=== PATIENT | female | born 1945 | race Caucasian/White ===

== ENCOUNTER 2022-04-01 12:24 | Inpatient (IN) | payer OTHER ==
[2022-04-01] MEDS ORDERED: DEXAMETHASONE SOD PHOSPHATE 10 MG/1 ML VIAL IVPUSH ONE (13:50)
[2022-04-01] MEDS ORDERED: GABAPENTIN 100 MG CAPSULE PO ONE (13:51)
[2022-04-01] MEDS ORDERED: HYDROmorphone HCL CARPU-JECT 2 MG/1 ML DISP.SYRIN IVPUSH ONE (13:51)
[2022-04-01] MEDS ORDERED: DEXAMETHASONE SOD PHOSPHATE 10 MG/1 ML VIAL ONE (14:46)
[2022-04-01] MEDS ORDERED: HYDROmorphone HCl 2 MG/ML VIAL ONE (14:47)
[2022-04-01] MEDS ORDERED: GABAPENTIN 100 MG CAPSULE ONE (14:47)
[2022-04-01] MEDS ORDERED: SODIUM CHLORIDE 1,000 ML IV SCH (15:15)
[2022-04-01 15:37] LABS: BASO % 0.4 % (0-2.0); EOS % 1.9 % (0-4.5); HEMATOCRIT 39.4 % (32.4-45.2); HEMOGLOBIN 13.1 GM/dL (10.7-15.3); LYMPH % 27.9 % (8-40); MCH 26.5 pg (25.7-33.7); MCHC 33.3 g/dl (32.0-36.0); MEAN CELL VOLUME 79.7 fl (80-96); MEAN PLT VOLUME 9.3 fl (7.5-11.1); MONO % 8.6 % (3.8-10.2); NEUT % 61.2 % (42.8-82.8); PLATELET COUNT 197 10^3/uL (134-434); RBC 4.94 M/mm3 (3.60-5.2); RDW 15.1 % (11.6-15.6); WHITE BLOOD COUNT 4.5 K/mm3 (4.0-10.0)
[2022-04-01 15:44] LABS: INR 1.03 (0.83-1.09); PROTHROMBIN TIME (PATIENT) 11.8 SEC (9.7-13.0)
[2022-04-01 16:10] LABS: CHLORIDE 101 mmol/L (98-107); SODIUM 139 mmol/L (136-145)
[2022-04-01 16:12] LABS: ANION GAP 6 MMOL/L (8-16); CALCIUM 10.1 mg/dL (8.5-10.1); CO2 32 mmol/L (21-32); GLUCOSE,RANDOM 112 mg/dL (74-106)
[2022-04-01 16:16] LABS: CREATININE 0.6 mg/dL (0.55-1.3)
[2022-04-01] MEDS: DEXTROSE 5%-0.45% SALINE 1,000 ML IV SCH ×2 (17:25→21:30)
[2022-04-01] MEDS: LIDOCAINE 5% TOPICAL PATCH TP SCH (18:18)
[2022-04-01] MEDS ORDERED: CYCLOBENZAPRINE HCL 5 MG TABLET ONE (19:33)
[2022-04-01] MEDS ORDERED: CYCLOBENZAPRINE HCL 5 MG TABLET PO ONE (20:00)
[2022-04-01] MEDS: HYDROmorphone HCl 2 MG/ML VIAL IVPUSH PRN (21:45)
[2022-04-01] MEDS: DEXAMETHASONE SOD PHOSPHATE 4 MG/1 ML VIAL IVPUSH SCH (21:47)
[2022-04-01] MEDS: LIDOCAINE PATCH REMOVAL MC SCH (21:47)
[2022-04-01] MEDS: HEPARIN NA (PORCINE) 5,000 UNITS/ML 1ML VIAL SQ SCH (21:56)
[2022-04-01] MEDS: INSULIN SLIDING SCALE (NOVOLOG) 1 VIAL SQ SCH (21:57)
[2022-04-02 01:46] VITALS: BMI 28.4
[2022-04-02] MEDS: DEXAMETHASONE SOD PHOSPHATE 4 MG/1 ML VIAL IVPUSH SCH ×4 (03:47→21:45)
[2022-04-02] MEDS: HYDROmorphone HCl 2 MG/ML VIAL IVPUSH PRN ×2 (06:10→09:52)
[2022-04-02] MEDS: INSULIN SLIDING SCALE (NOVOLOG) 1 VIAL SQ SCH ×4 (06:18→21:53)
[2022-04-02] MEDS: LIDOCAINE 5% TOPICAL PATCH TP SCH (09:30)
[2022-04-02] MEDS: PANTOPRAZOLE 20 MG TABLET PO SCH (09:30)
[2022-04-02] MEDS: LOSARTAN POTASSIUM 50 MG TABLET PO SCH (09:30)
[2022-04-02] MEDS: amLODIPine BESYLATE 5 MG TABLET (FP) PO SCH (09:30)
[2022-04-02] MEDS: HEPARIN NA (PORCINE) 5,000 UNITS/ML 1ML VIAL SQ SCH (09:31)
[2022-04-02 09:53] LABS: HEMATOCRIT 39.7 % (32.4-45.2); HEMOGLOBIN 13.2 GM/dL (10.7-15.3); MCH 26.3 pg (25.7-33.7); MCHC 33.3 g/dl (32.0-36.0); MEAN PLT VOLUME 9.4 fl (7.5-11.1); PLATELET COUNT 219 10^3/uL (134-434); RBC 5.02 M/mm3 (3.60-5.2); RDW 14.9 % (11.6-15.6); WHITE BLOOD COUNT 4.9 K/mm3 (4.0-10.0)
[2022-04-02 10:10] LABS: ALBUMIN 3.8 g/dl (3.4-5.0); CALCIUM 10.3 mg/dL (8.5-10.1)
[2022-04-02 10:11] LABS: BLOOD UREA NITROGEN 18.2 mg/dL (7-18)
[2022-04-02 10:14] LABS: CHOLESTEROL 196 mg/dL (50-200); CREATININE 0.8 mg/dL (0.55-1.3)
[2022-04-02 10:15] LABS: BILIRUBIN,TOTAL 0.6 mg/dL (0.2-1); TOT PROT 7.3 g/dl (6.4-8.2); TRIGLYCERIDES 129 mg/dL (0-150)
[2022-04-02 10:16] LABS: LDL CHOLESTEROL (ONLY SJRH) 73 mg/dL (5-100)
[2022-04-02 10:19] LABS: HDL CHOLESTEROL 102 mg/dL (40-60)
[2022-04-02] MEDS: GABAPENTIN 300 MG CAPSULE PO SCH ×2 (13:26→21:45)
[2022-04-02] MEDS ORDERED: HYDROmorphone HCl 2 MG/ML VIAL IVPB ONE (13:30)
[2022-04-02] MEDS: DEXTROSE 5%-0.45% SALINE 1,000 ML IV SCH (18:23)
[2022-04-02] MEDS: LIDOCAINE PATCH REMOVAL MC SCH (21:45)
[2022-04-03] MEDS: DEXAMETHASONE SOD PHOSPHATE 4 MG/1 ML VIAL IVPUSH SCH ×3 (02:25→18:35)
[2022-04-03] MEDS: GABAPENTIN 300 MG CAPSULE PO SCH ×3 (06:18→22:07)
[2022-04-03] MEDS: INSULIN SLIDING SCALE (NOVOLOG) 1 VIAL SQ SCH ×4 (06:29→21:46)
[2022-04-03] MEDS ORDERED: LIDOCAINE HCL/PF 1% SDV 5ML VIAL ONE ×3 (07:09→14:05)
[2022-04-03] MEDS ORDERED: BUPIVACAINE HCL/PF 0.75% 10 ML VIAL ONE (07:09)
[2022-04-03] MEDS: amLODIPine BESYLATE 5 MG TABLET (FP) PO SCH (09:35)
[2022-04-03] MEDS: PANTOPRAZOLE 20 MG TABLET PO SCH (09:35)
[2022-04-03] MEDS: LIDOCAINE 5% TOPICAL PATCH TP SCH (09:35)
[2022-04-03] MEDS: LOSARTAN POTASSIUM 50 MG TABLET PO SCH (09:35)
[2022-04-03] MEDS ORDERED: DEXAMETHASONE SOD PHOSPHATE 10 MG/1 ML VIAL ONE (14:05)
[2022-04-03] MEDS ORDERED: LIDOCAINE HCL 1% PRESERVATIVE FREE - 30ML VIAL IJ ONE (14:08)
[2022-04-03] MEDS ORDERED: DEXAMETHASONE SOD PHOSPHATE 10 MG/1 ML VIAL IVPUSH ONE (14:10)
[2022-04-03] MEDS ORDERED: IOHEXOL 180 MG/1 ML ML IJ ONE (14:10)
[2022-04-03] MEDS: HEPARIN NA (PORCINE) 5,000 UNITS/ML 1ML VIAL SQ SCH (22:07)
[2022-04-03] MEDS: LIDOCAINE PATCH REMOVAL MC SCH (22:12)
[2022-04-04] MEDS: DEXAMETHASONE SOD PHOSPHATE 4 MG/1 ML VIAL IVPUSH SCH ×3 (01:47→22:04)
[2022-04-04] MEDS: GABAPENTIN 300 MG CAPSULE PO SCH ×3 (06:44→22:04)
[2022-04-04] MEDS: INSULIN SLIDING SCALE (NOVOLOG) 1 VIAL SQ SCH ×4 (06:47→22:04)
[2022-04-04] MEDS: LIDOCAINE 5% TOPICAL PATCH TP SCH (09:53)
[2022-04-04] MEDS: POLYETHYLENE GLYCOL (HEALTHYLAX) 3350 17 GM PACKET PO SCH (09:53)
[2022-04-04] MEDS: LOSARTAN POTASSIUM 50 MG TABLET PO SCH (09:53)
[2022-04-04] MEDS: oxyCODONE HCL 5 MG TABLET PO PRN ×2 (09:54→15:29)
[2022-04-04] MEDS: PANTOPRAZOLE 20 MG TABLET PO SCH (09:54)
[2022-04-04] MEDS: amLODIPine BESYLATE 5 MG TABLET (FP) PO SCH (09:55)
[2022-04-04] MEDS: HEPARIN NA (PORCINE) 5,000 UNITS/ML 1ML VIAL SQ SCH ×2 (09:56→22:04)
[2022-04-04] MEDS: DEXTROSE 5%-0.45% SALINE 1,000 ML IV SCH (09:56)
[2022-04-04] MEDS: DOCUSATE SODIUM 100 MG CAPSULE (FP) PO PRN (15:30)
[2022-04-04] MEDS ORDERED: INSULIN (NOVOLOG) ASPART 100 UNITS/ML 10ML VIAL ONE (22:00)
[2022-04-04] MEDS: LIDOCAINE PATCH REMOVAL MC SCH (22:12)
[2022-04-05] MEDS: oxyCODONE HCL 5 MG TABLET PO PRN ×2 (00:24→13:40)
[2022-04-05] MEDS: GABAPENTIN 300 MG CAPSULE PO SCH ×3 (05:28→21:01)
[2022-04-05] MEDS: DEXAMETHASONE SOD PHOSPHATE 4 MG/1 ML VIAL IVPUSH SCH ×3 (05:28→21:01)
[2022-04-05] MEDS: INSULIN SLIDING SCALE (NOVOLOG) 1 VIAL SQ SCH ×4 (07:04→21:07)
[2022-04-05] MEDS: DEXTROSE 5%-0.45% SALINE 1,000 ML IV SCH (09:16)
[2022-04-05] MEDS: LIDOCAINE 5% TOPICAL PATCH TP SCH (10:56)
[2022-04-05] MEDS: amLODIPine BESYLATE 5 MG TABLET (FP) PO SCH (10:56)
[2022-04-05] MEDS: PANTOPRAZOLE 20 MG TABLET PO SCH (10:56)
[2022-04-05] MEDS: HEPARIN NA (PORCINE) 5,000 UNITS/ML 1ML VIAL SQ SCH ×2 (10:56→21:01)
[2022-04-05] MEDS: POLYETHYLENE GLYCOL (HEALTHYLAX) 3350 17 GM PACKET PO SCH (10:56)
[2022-04-05] MEDS: LOSARTAN POTASSIUM 50 MG TABLET PO SCH (10:57)
[2022-04-05] MEDS: DOCUSATE SODIUM 100 MG CAPSULE (FP) PO PRN (11:07)
[2022-04-05] MEDS: LIDOCAINE PATCH REMOVAL MC SCH (21:01)
[2022-04-06] MEDS: DEXAMETHASONE SOD PHOSPHATE 4 MG/1 ML VIAL IVPUSH SCH ×2 (06:27→13:00)
[2022-04-06] MEDS: GABAPENTIN 300 MG CAPSULE PO SCH ×2 (06:27→12:59)
[2022-04-06] MEDS: INSULIN SLIDING SCALE (NOVOLOG) 1 VIAL SQ SCH ×2 (06:32→11:15)
[2022-04-06 08:57] VITALS: TEMP 97.7
[2022-04-06] MEDS ORDERED: BISACODYL 10 MG SUPP.RECT PR ONE (09:40)
[2022-04-06] MEDS: HEPARIN NA (PORCINE) 5,000 UNITS/ML 1ML VIAL SQ SCH (09:58)
[2022-04-06] MEDS: LOSARTAN POTASSIUM 50 MG TABLET PO SCH (09:58)
[2022-04-06] MEDS: PANTOPRAZOLE 20 MG TABLET PO SCH (09:59)
[2022-04-06] MEDS: amLODIPine BESYLATE 5 MG TABLET (FP) PO SCH (09:59)
[2022-04-06] MEDS: DOCUSATE SODIUM 100 MG CAPSULE (FP) PO PRN (09:59)
[2022-04-06] MEDS: LIDOCAINE 5% TOPICAL PATCH TP SCH (09:59)
[2022-04-06] MEDS ORDERED: POLYETHYLENE GLYCOL (HEALTHYLAX) 3350 17 GM PACKET PO SCH (10:00)
[2022-04-06 13:05] VITALS: BP 143/67; PULSE 76
== END 2022-04-06 14:46 | disposition home or self-care (01) | DRG 347 ==
LOC: JER 12:24 → JERBED 15:10 → OBSVTOIN 17:19 → J6S 20:53
PROVIDERS: ADMIT Family Medicine; ATTEND Family Medicine
PROC: 3E0S3BZ Introduction of Anesthetic Agent into Epidural Space, Percutaneous Approach (ICD-10-PCS; 2022-04-03)
PROC: 3E0S33Z Introduction of Anti-inflammatory into Epidural Space, Percutaneous Approach (ICD-10-PCS; principal; 2022-04-03 12:00)
DX: M48.061 Spinal stenosis, lumbar region without neurogenic claudication (principal); M54.16 Radiculopathy, lumbar region; M43.06 Spondylolysis, lumbar region; I10 Essential (primary) hypertension; M54.9 Dorsalgia, unspecified; M54.17 Radiculopathy, lumbosacral region; E11.9 Type 2 diabetes mellitus without complications; E78.5 Hyperlipidemia, unspecified; M54.31 Sciatica, right side; R26.2 Difficulty in walking, not elsewhere classified
CPT/HCPCS: 0241U-QW; 36415; 72148-TC; 76000-TC-FY; 80048; 80053; 80061; 82550; 82553; 82962; 83036; 83735; 85025; 85027; 85610; 85730; 86140; 97116-GP; 97162-GP; 99285-25; G0378; J1100; J1644